=== PATIENT | female | born 1990 | race African-American/Black ===

== ENCOUNTER 2017-08-09 01:12 | Emergency (ER) | payer SELFPAY ==
[2017-08-09] MEDS ORDERED: Ketorolac INJ* 30 MG/ML 1 ML VIAL IV PUSH ONE (01:40)
[2017-08-09 01:44] LABS: ABS Basophils 0 10^3/ul (0-0.2); ABS Eosinophils 0.2 10^3/ul (0-0.6); ABS Lymphocytes 2.6 10^3/ul (1.0-4.8); ABS Neutrophils 5.3 10^3/ul (1.5-7.7); ABS Nucleated RBC 0 10^3/ul; Eosinophil % 2.3 % (0-6); Hematocrit 35 % (35-47); Hemoglobin 11.6 g/dl (12.0-16.0); Lymphocyte % 28.5 % (25-47); Mean Corpuscular HGB Conc 33 g/dl (31-36); Mean Corpuscular Hemoglobin 26 pg (27-31); Mean Corpuscular Volume 79 fL (80-97); Mean Platelet Volume 6.7 um3 (7.4-10.4); Nucleated Red Blood Cells % 0; Platelet Count 252 10^3/ul (150-450); Red Blood Count 4.43 10^6/ul (4.0-5.4); Red Cell Distribution Width 15 % (10.5-15); White Blood Count 9.1 10^3/ul (3.5-10.8)
[2017-08-09 02:01] LABS: EGFR Non-African American 113.4 (>60)
[2017-08-09 02:02] LABS: Urine Appearance Cloudy; Urine Blood 3+ (Negative); Urine Color Yellow; Urine Ketones Negative (Negative); Urine Protein 1+(30 mg/dL) (Negative); Urine Specific Gravity 1.023 (1.010-1.030); Urine Urobilinogen Negative (Negative)
[2017-08-09] MEDS ORDERED: cefTRIAXone(*) 1 GM in NS 0.9% 50 ML* 50 ML IVPB ONE (02:29)
[2017-08-09 04:11] VITALS: BP 120/68
--- NOTE | 2017-08-09 05:01 | ED ---
Nakita Babcock Nilda, scribed for Nabil Fiore MD on 08/09/17 at 0143 . GI/ HPI - HPI Summary HPI Summary: This patient is a 27 year old F [facility] accompanied by partner with a chief complaint of constant dysuria with a few drops of blood in urine today. The patient rates the pain 4/10 in severity. Symptoms aggravated by urination and alleviated by nothing. Patient reports left suprapubic pain and lower back pain. Patient denies vaginal pain, vaginal discharge, and N/V. 2 days ago, pt states her partner and her had intercourse and used a toy that was large and found blood on the toy afterwards. Pt states no chance of because she has not had sex with male recently. Pt states no recent daily medications. PSHx gastric bypass so pt states she cannot have NSAID PO. Allergies to Tylenol. - History of Current Complaint Chief Complaint: EDFlankPain Time Seen by Provider: 08/09/17 01:30 Stated Complaint: BLOOD IN URINE/ABD PAIN Hx Obtained From: Patient Onset/Duration: Started Hours Ago Timing: Constant, Lasting Hours Current Severity: Moderate Pain Intensity: 4 Location of Pain: Other - left lower abd pain Associated Signs and Symptoms: Positive: Other: - dysuria, hematuria, left suprapubic pain and lower back pain. Patient denies vaginal pain, vaginal discharge, and N/V Aggravating Factor(s): Urination Alleviating Factor(s): Nothing - Allergy/Home Medications Allergies/Adverse Reactions: Allergies Allergy/AdvReac Type Severity Reaction Status Date / Time acetaminophen Allergy Shortness Verified 08/09/17 01:27 of Breath NSAIDS (Non-Steroidal Allergy Unknown Verified 08/09/17 01:27 Anti-Inflamma Reaction Details PMH/Surg Hx/FS Hx/Imm Hx EENT History: Denies: Hx Deafness Neurological History: Reports: Other Neuro Impairments/Disorders - trigeminal neuralgia - Surgical History Surgery Procedure, Year, and Place: Gastric bypass. Infectious Disease History: No Infectious Disease History: Denies: Traveled Outside the [place] in Last 30 Days - Family History Known Family History: Positive: Other - breast CA - Social History Substance Use Type: Reports: None Review of Systems Positive: Abdominal Pain - left suprapubic pain. Negative: Vomiting, Nausea Positive: dysuria, hematuria. Negative: discharge Positive: Other - lower back pain All Other Systems Reviewed And Are Negative: Yes Physical Exam - Summary Physical Exam Summary: Appearance: Well appearing, no pain distress Skin: warm, dry, reflects adequate perfusion Head/face: normal Eyes: EOMI, [place] ENT: normal Neck: supple, non-tender Respiratory: CTA, breath sounds present Cardiovascular: RRR, pulses symmetrical Abdomen: non-tender, soft, no CVA tenderness Bowel Sounds: present Musculoskeletal: normal, strength/ROM intact Neuro: normal, sensory motor intact, A&Ox3 Triage Information Reviewed: Yes Vital Signs On Initial Exam: Initial Vitals Temp Pulse Resp BP Pulse Ox 97.3 F 68 16 111/64 100 08/09/17 01:24 08/09/17 01:24 08/09/17 01:24 08/09/17 01:24 08/09/17 01:24 Vital Signs Reviewed: Yes Diagnostics - Vital Signs Vital Signs Temp Pulse Resp BP Pulse Ox 08/09/17 01:24 97.3 F 68 16 111/64 100 - Laboratory Lab Results: Lab Results 08/09/17 08/09/17 08/09/17 Range/Units 01:37 01:37 01:37 WBC 9.1 (3.5-10.8) 10^3/ul RBC 4.43 (4.0-5.4) 10^6/ul Hgb 11.6 L (12.0-16.0) g/dl Hct 35 (35-47) % MCV 79 L (80-97) fL MCH 26 L (27-31) pg MCHC 33 (31-36) g/dl RDW 15 (10.5-15) % Plt Count 252 (150-450) 10^3/ul MPV 6.7 L (7.4-10.4) um3 Neut % (Auto) 58.0 (38-83) % Lymph % (Auto) 28.5 (25-47) % [place] % (Auto) 10.7 H (0-7) % Eos % (Auto) 2.3 (0-6) % Baso % (Auto) 0.5 (0-2) % Absolute Neuts (auto) 5.3 (1.5-7.7) 10^3/ul Absolute Lymphs (auto) 2.6 (1.0-4.8) 10^3/ul Absolute Monos (auto) 1.0 H (0-0.8) 10^3/ul Absolute Eos (auto) 0.2 (0-0.6) 10^3/ul Absolute Basos (auto) 0 (0-0.2) 10^3/ul Absolute Nucleated RBC 0 10^3/ul Nucleated RBC % 0 Sodium 140 (139-145) mmol/L Potassium 4.4 (3.5-5.0) mmol/L Chloride 108 (101-111) mmol/L Carbon Dioxide 28 (22-32) mmol/L Anion Gap 4 (2-11) mmol/L BUN 14 (6-24) mg/dL Creatinine 0.63 (0.51-0.95) mg/dL Est GFR ( Amer) 145.8 (>60) Est GFR (Non-Af Amer) 113.4 (>60) BUN/Creatinine Ratio 22.2 H (8-20) Glucose 88 (70-100) mg/dL Lactic Acid 0.8 (0.5-2.0) mmol/L Calcium 8.6 (8.6-10.3) mg/dL Total Bilirubin 0.20 (0.2-1.0) mg/dL AST 22 (13-39) U/L ALT 28 (7-52) U/L Alkaline Phosphatase 77 (34-104) U/L C-Reactive Protein 5.57 H (< 5.00) mg/L Total Protein 6.1 L (6.4-8.9) g/dL Albumin 3.5 (3.2-5.2) g/dL Globulin 2.6 (2-4) g/dL Albumin/Globulin Ratio 1.3 (1-3) Lipase 25 (11.0-82.0) U/L Beta HCG, Quant < 0.60 mIU/mL Urine Color Urine Appearance Urine pH (5-9) Ur Specific [place] (1.010-1.030) Urine Protein (Negative) Urine Ketones (Negative) Urine Blood (Negative) Urine Nitrate (Negative) Urine Bilirubin (Negative) Urine Urobilinogen (Negative) Ur Leukocyte Esterase (Negative) Urine WBC (Auto) (Absent) Urine RBC (Auto) (Absent) Ur Squamous Epith Cells (Absent) Urine Bacteria (Absent) Urine Glucose (Negative) 08/09/17 Range/Units 01:46 WBC (3.5-10.8) 10^3/ul RBC (4.0-5.4) 10^6/ul Hgb (12.0-16.0) g/dl Hct (35-47) % MCV (80-97) fL MCH (27-31) pg MCHC (31-36) g/dl RDW (10.5-15) % Plt Count (150-450) 10^3/ul MPV (7.4-10.4) um3 Neut % (Auto) (38-83) % Lymph % (Auto) (25-47) % [place] % (Auto) (0-7) % Eos % (Auto) (0-6) % Baso % (Auto) (0-2) % Absolute Neuts (auto) (1.5-7.7) 10^3/ul Absolute Lymphs (auto) (1.0-4.8) 10^3/ul Absolute Monos (auto) (0-0.8) 10^3/ul Absolute Eos (auto) (0-0.6) 10^3/ul Absolute Basos (auto) (0-0.2) 10^3/ul Absolute Nucleated RBC 10^3/ul Nucleated RBC % Sodium (139-145) mmol/L Potassium (3.5-5.0) mmol/L Chloride (101-111) mmol/L Carbon Dioxide (22-32) mmol/L Anion Gap (2-11) mmol/L BUN (6-24) mg/dL Creatinine (0.51-0.95) mg/dL Est GFR ( Amer) (>60) Est GFR (Non-Af Amer) (>60) BUN/Creatinine Ratio (8-20) Glucose (70-100) mg/dL Lactic Acid (0.5-2.0) mmol/L Calcium (8.6-10.3) mg/dL Total Bilirubin (0.2-1.0) mg/dL AST (13-39) U/L ALT (7-52) U/L Alkaline Phosphatase (34-104) U/L C-Reactive Protein (< 5.00) mg/L Total Protein (6.4-8.9) g/dL Albumin (3.2-5.2) g/dL Globulin (2-4) g/dL Albumin/Globulin Ratio (1-3) Lipase (11.0-82.0) U/L Beta HCG, Quant mIU/mL Urine Color Yellow Urine Appearance Cloudy Urine pH 6.0 (5-9) Ur Specific [place] 1.023 (1.010-1.030) Urine Protein 1+(30 mg/dl) A (Negative) Urine Ketones Negative (Negative) Urine Blood 3+ A (Negative) Urine Nitrate Positive A (Negative) Urine Bilirubin Negative (Negative) Urine Urobilinogen Negative (Negative) Ur Leukocyte Esterase 3+ A (Negative) Urine WBC (Auto) 3+(>20/hpf) A (Absent) Urine RBC (Auto) 3+(>10/hpf) A (Absent) Ur Squamous Epith Cells Present A (Absent) Urine Bacteria Absent (Absent) Urine Glucose Negative (Negative) Result Diagrams: 08/09/17 01:37 08/09/17 01:37 Lab Statement: Any lab studies that have been ordered have been reviewed, and results considered in the medical decision making process. - CT Abd/Pel CT Interpretation Completed By: Radiologist - CT Abd/Pel: No nephrolithiasis, ureterolithiasis or obstructive uropathy. No bladder calculi. Unremarkable pancreas and gallbladder. No bowel obstruction, colitis, free fluid or free air. Appendix not seen. Gastric bypass. Unremarkable uterus and ovaries. Dr. Fiore has reviewed this report. Re-Evaluation - Re-Evaluation First Eval Re-Evaluation Time: 02:44 Change: Improved Comment: Pt feels better. She's agreeable to D/C. GIGU Course/Dx - Course Course Of Treatment: Patient with urinary symptoms without fever or vomiting. She does have flank pain, left lower quadrant pain and hematuria. CT scan was performed to rule out stone. No stone was seen. No adnexal pathology was noted. IV Rocephin was given here and the patient was discharged on oral antibiotics. She will follow up closely with her primary care physician. - Diagnoses Differential Diagnoses - Female: Ovarian Cyst, , Pelvic Inflammatory Disease, Renal Calculi, Renal Colic, Tubo-Ovarian Abscess, Urinary Tract Infection Provider Diagnoses: Acute cystitis Discharge - Sign-Out/Discharge Documenting (check all that apply): Discharge/Admit/Transfer - Discharge Plan Condition: Good Disposition: HOME Prescriptions: Cephalexin CAP* [Keflex CAP*] 500 mg PO TID #15 cap Phenazopyridine 200 mg (NF) [Pyridium 200 MG tab *] 200 mg PO TID #9 tab Patient Education Materials: Urinary Tract Infection in Women (ED) Forms: *Work Release Referrals: [facility] [Outside] No Primary Care Phys,NOPCP [Primary Care Provider] - Additional Instructions: Drink plenty of fluids. Cranberry may help. Return with fever, vomiting, increased pain, worse or other concerns. - Billing Disposition and Condition Condition: GOOD Disposition: HOME The documentation as recorded by the Nakita marino Nilda accurately reflects the service I personally performed and the decisions made by , Nabil Fiore MD.
--- NOTE | 2017-08-09 08:11 | RAD ---
CLINICAL HISTORY: Left flank pain COMPARISON: None TECHNIQUE: Multiple contiguous axial CT scans were obtained of the abdomen and pelvis, without intravenous contrast enhancement. Coronal and sagittal multiplanar reformations are submitted for review. Oral contrast was not administered. FINDINGS: The study is limited by the lack of intravenous contrast. This limits evaluation of the solid organs and vasculature. LUNG BASES: The lung bases are clear. LIVER: The liver is normal in shape, size, contour, and attenuation. BILE DUCTS: There is no intrahepatic or extrahepatic biliary dilatation. GALLBLADDER: The gallbladder is normal, without pericholecystic inflammatory change. PANCREAS: The pancreas is normal, without mass or ductal dilatation. SPLEEN: Normal in size and appearance. UPPER GI TRACT: Evaluation of the gastrointestinal tract is limited by incomplete gastric distention. There is postsurgical change to the upper GI tract. SMALL BOWEL AND MESENTERY: There is postsurgical change to the small bowel. There is no obstruction. COLON: The colon is normal in contour, course, caliber. There is no pericolonic inflammatory change. The appendix is not clearly visualized. There is no inflammatory change within the right lower quadrant. ADRENALS: Normal bilaterally. KIDNEYS: The kidneys are normal in shape, size, contour, and axis. There is no hydronephrosis or nephrolithiasis. BLADDER: The bladder is incompletely distended but is grossly normal. PELVIC ORGANS: The uterus and adnexa are grossly normal for technique. AORTA: The aorta is normal. IVC: Unremarkable LYMPH NODES: There is no lymphadenopathy by size criteria. ABDOMINAL WALL: There is no evidence for abdominal wall hernia. BONES AND SOFT TISSUES: The bones and soft tissues are unremarkable. OTHER: None IMPRESSION: NO HYDRONEPHROSIS OR NEPHROLITHIASIS.
--- NOTE | 2017-08-11 06:48 | PN ---
Progress Note - Progress Note Date of Service: 08/09/17 Note: Urine culture preliminary grew Escherichia coli Patient was placed on Keflex prior to discharge We'll await sensitivities Nothing further at this time
--- NOTE | 2017-08-12 06:59 | PN ---
Progress Note - Progress Note Date of Service: 08/09/17 Note: Urine grew Escherichia coli Urine shows sensitivities to Keflex Patient placed on Keflex prior to discharge Nothing further at this time
== END 2017-08-09 03:45 | disposition home or self-care (01) ==
LOC: ED 01:12
DX: N30.00 Acute cystitis without hematuria (principal); B96.20 Unspecified Escherichia coli [E. coli] as the cause of diseases classified elsewhere; Z98.84 Bariatric surgery status; Z88.6 Allergy status to analgesic agent
CPT/HCPCS: 36415; 74176; 80053; 81003; 81015; 83605; 83690; 84702; 85025; 86140; 87077; 87086; 87186; 96374; 96375; 99284; J0696; J1885

== ENCOUNTER 2017-09-07 13:38 | Emergency (ER) | payer SELFPAY ==
[2017-09-07 14:39] LABS: Urine Appearance Cloudy; Urine Blood 2+ (Negative); Urine Color Amber; Urine Ketones Negative (Negative); Urine Protein Negative (Negative); Urine Specific Gravity 1.016 (1.010-1.030); Urine Urobilinogen Negative (Negative)
--- NOTE | 2017-09-07 15:02 | ED ---
Russ Babcock Stephanie, scribed for Nabil Fiore MD on 09/07/17 at 1450 . GI/ HPI - HPI Summary HPI Summary: The pt is a 27 y/o F presenting to the ED with c/o burning with urination that began 09/05/17. Symptoms include slight back discomfort. - History of Current Complaint Chief Complaint: EDUrogenitalProblems Time Seen by Provider: 09/07/17 14:42 Stated Complaint: POSS UTI Hx Obtained From: Patient Onset/Duration: Started Days Ago - 2, Still Present Timing: Constant Current Severity: Mild Pain Intensity: 4 Pain Characteristics: Burning Associated Signs and Symptoms: Positive: Dysuria, Other: - slight back discomfort Aggravating Factor(s): Urination Alleviating Factor(s): Nothing - Allergy/Home Medications Allergies/Adverse Reactions: Allergies Allergy/AdvReac Type Severity Reaction Status Date / Time acetaminophen Allergy Shortness Verified 09/07/17 13:46 of Breath NSAIDS (Non-Steroidal AdvReac See Comment Verified 09/07/17 13:46 Anti-Inflamma PMH/Surg Hx/FS Hx/Imm Hx Sensory History: Denies: Hx Legally Blind, Hx Deafness EENT History: Denies: Hx Deafness Neurological History: Reports: Other Neuro Impairments/Disorders - trigeminal neuralgia - Surgical History Surgery Procedure, Year, and Place: Gastric bypass. Infectious Disease History: No Infectious Disease History: Denies: Traveled Outside the [place] in Last 30 Days - Family History Known Family History: Positive: Other - breast CA Negative: Renal Disease - Social History Occupation: Employed Part-time Lives: With Family Alcohol Use: None Hx Substance Use: No Substance Use Type: Reports: None Hx Tobacco Use: No Smoking Status (MU): Never Smoked Tobacco Have You Smoked in the Last Year: No Review of Systems Negative: Fever Positive: burning, other - slight back discomfort Negative: Slurred Speech All Other Systems Reviewed And Are Negative: Yes Physical Exam - Summary Physical Exam Summary: Appearance: Well appearing, no pain distress Skin: warm, dry, reflects adequate perfusion Head/face: normal Eyes: EOMI, [place] ENT: normal Neck: supple, non-tender Respiratory: CTA, breath sounds present Cardiovascular: RRR, pulses symmetrical Abdomen: non-tender, soft Bowel Sounds: present Musculoskeletal: normal, strength/ROM intact Neuro: normal, sensory motor intact, A&Ox3 Triage Information Reviewed: Yes Vital Signs On Initial Exam: Initial Vitals Temp Pulse Resp BP Pulse Ox 98.2 F 70 14 108/60 100 09/07/17 13:42 09/07/17 13:42 09/07/17 13:42 09/07/17 13:42 09/07/17 13:42 Vital Signs Reviewed: Yes Diagnostics - Vital Signs Vital Signs Temp Pulse Resp BP Pulse Ox 09/07/17 13:42 98.2 F 70 14 108/60 100 - Laboratory Lab Results: Lab Results 09/07/17 Range/Units 14:09 Urine Color [place] Urine Appearance Cloudy Urine pH 5.0 (5-9) Ur Specific [place] 1.016 (1.010-1.030) Urine Protein Negative (Negative) Urine Ketones Negative (Negative) Urine Blood 2+ A (Negative) Urine Nitrate Positive A (Negative) Urine Bilirubin Negative (Negative) Urine Urobilinogen Negative (Negative) Ur Leukocyte Esterase 3+ A (Negative) Urine WBC (Auto) 3+(>20/hpf) A (Absent) Urine RBC (Auto) 3+(>10/hpf) A (Absent) Ur Squamous Epith Cells Present A (Absent) Ur Transition Epith Cell Present A (Absent) Urine Bacteria 1+ A (Absent) Urine Glucose Negative (Negative) Urine Ascorbic Acid * A (Negative) Lab Statement: Any lab studies that have been ordered have been reviewed, and results considered in the medical decision making process. GIGU Course/Dx - Course Course Of Treatment: Supple, uncomplicated urinary tract infection and woman. Treat with Macrobid and Pyridium. - Diagnoses Differential Diagnoses - Female: Other - UTI, cystitis, pyelonephritis Provider Diagnoses: Urinary tract infection Discharge - Sign-Out/Discharge Documenting (check all that apply): Discharge/Admit/Transfer - Discharge - Discharge Plan Condition: Stable Disposition: HOME Prescriptions: Nitrofurantoin Monohyd/M-Cryst [Macrobid 100 mg Capsule] 100 mg PO BID #14 cap Patient Education Materials: Urinary Tract Infection in Women (ED) Referrals: [facility] [Outside] [facility] [Outside] Additional Instructions: Drink lots of fluids. Cranberry juice may help. Return with fever, back pain, vomiting, worse or other concerns. - Billing Disposition and Condition Condition: STABLE Disposition: Home The documentation as recorded by the Russ marino Stephanie accurately reflects the service I personally performed and the decisions made by me, Nabil Fiore MD.
[2017-09-07 15:17] VITALS: BP 110/70
--- NOTE | 2017-09-09 18:11 | PN ---
Progress Note - Progress Note Date of Service: 09/09/17 Note: Patient's urine culture grew Klebsiella pneumonia 25-50,000. Patient placed on Macrobid. Will wait for final culture sensitivity.
== END 2017-09-07 15:15 | disposition home or self-care (01) ==
LOC: ED 13:38
DX: N39.0 Urinary tract infection, site not specified (principal); Z88.6 Allergy status to analgesic agent; Z98.84 Bariatric surgery status
CPT/HCPCS: 81003; 81015; 87077; 87086; 87186; 99282

== ENCOUNTER → 2018-08-20 19:00 | Emergency (ER) | payer BC ==
[2018-08-20 20:49] LABS: ABS Eosinophils 0.1 10^3/ul (0-0.6); ABS Lymphocytes 1.7 10^3/ul (1.0-4.8); ABS Monocytes 0.9 10^3/ul (0-0.8); ABS Neutrophils 8.9 10^3/ul (1.5-7.7); Eosinophil % 0.8 %; Hematocrit 35 % (35-47); Hemoglobin 11.4 g/dL (12.0-16.0); Lymphocyte % 14.7 %; Mean Corpuscular HGB Conc 33 g/dL (31-36); Mean Corpuscular Hemoglobin 27 pg (27-31); Mean Corpuscular Volume 82 fL (80-97); Nucleated Red Blood Cells % 0.1; Platelet Count 290 10^3/uL (150-450); Red Blood Count 4.24 10^6 /uL (3.70-4.87); Red Cell Distribution Width 14 % (10.5-15); White Blood Count 11.6 10^3/uL (3.5-10.8)
[2018-08-20 20:58] LABS: Albumin 3.5 g/dL (3.2-5.2); Calcium 9.3 mg/dL (8.6-10.3); Potassium 3.7 mmol/L (3.5-5.0); Total Bilirubin 0.3 mg/dL (0.2-1.0)
[2018-08-20 21:05] LABS: Albumin/Globulin Ratio 1.1 (1-3); EGFR African American 177.8 (>60); EGFR Non-African American 146.9 (>60); Globulin 3.1 g/dL (2-4); Total Protein 6.6 g/dL (6.4-8.9)
--- NOTE | 2018-08-20 21:55 | ED ---
Abdominal Pain/Female - HPI Summary HPI Summary: This patient is a 28 year old female presenting to [facility] with a chief complaint of abdominal pain. The patient is 24 weeks and she reports nausea and diarrhea since yesterday. She states the diarrhea has been watery. She notices RUQ discomfort today. She describes the pain as a pressure pain. She rates her pain 4/10 in severity. The patient has not had much to eat or drink because she states it triggers her diarrhea. - History of Current Complaint Chief Complaint: EDNauseaVomitDiarrh Stated Complaint: DIARRHEA, 24 WEEKS , ABD PAIN PER PT Time Seen by Provider: 08/20/18 21:49 Hx Obtained From: Patient ?: Yes Onset/Duration: Sudden Onset, Lasting Days Pain Intensity: 4 Pain Scale Used: 0-10 Numeric Location: Discrete At: RUQ Radiates: No Allergies/Adverse Reactions: Allergies Allergy/AdvReac Type Severity Reaction Status Date / Time NSAIDS (Non-Steroidal AdvReac See Comment Verified 09/07/17 13:46 Anti-Inflamma PMH/Surg Hx/FS Hx/Imm Hx Sensory History: Denies: Hx Legally Blind, Hx Deafness Opthamlomology History: Denies: Hx Legally Blind Neurological History: Reports: Other Neuro Impairments/Disorders - trigeminal neuralgia - Surgical History Surgery Procedure, Year, and Place: Gastric bypass. Infectious Disease History: No Infectious Disease History: Denies: Traveled Outside the [place] in Last 30 Days - Family History Known Family History: Positive: Other - breast CA Negative: Renal Disease - Social History Alcohol Use: None Hx Substance Use: No Substance Use Type: Reports: None Hx Tobacco Use: No Smoking Status (MU): Never Smoked Tobacco Have You Smoked in the Last Year: No Review of Systems Negative: Fever Positive: Abdominal Pain, Diarrhea, Nausea. Negative: Vomiting All Other Systems Reviewed And Are Negative: Yes Physical Exam - Summary Physical Exam Summary: Appearance: Well-appearing, Well-nourished, lying in bed comfortably. Appears well hydrated. Skin: Warm, dry, no obvious rash Eyes: sclera anicteric, no conjunctival pallor ENT: mucous membranes moist, pharynx appears normal Neck: Supple, nontender Respiratory: Clear to auscultation, no signs of respiratory distress Cardiovascular: Normal S1, S2. No murmurs. Normal distal pulses in tibial and radial bilaterally. Abdomen: Soft, nontender, normal active bowel sounds present. Gravid abdomen. Uterine Fundal height is 5 cm above the symphysis pubis, within normal limits for this length of . Musculoskeletal: Normal, Strength/ROM Intact Neurological: A&Ox3, awake and alert, mentation is normal, speech is fluent and appropriate Psychiatric: affect is normal, does not appear anxious or depressed Triage Information Reviewed: Yes Vital Signs On Initial Exam: Initial Vitals Temp Pulse Resp BP Pulse Ox 97.8 F 95 18 131/85 100 08/20/18 19:05 08/20/18 19:05 08/20/18 19:05 08/20/18 19:05 08/20/18 19:05 Vital Signs Reviewed: Yes Diagnostics - Vital Signs Vital Signs Temp Pulse Resp BP Pulse Ox 08/20/18 21:30 98.5 F 85 18 125/63 100 08/20/18 19:05 97.8 F 95 18 131/85 100 - Laboratory Lab Results: Lab Results 08/20/18 08/20/18 Range/Units 20:39 20:39 WBC 11.6 H (3.5-10.8) 10^3/uL RBC 4.24 (3.70-4.87) 10^6 /uL Hgb 11.4 L (12.0-16.0) g/dL Hct 35 (35-47) % MCV 82 (80-97) fL MCH 27 (27-31) pg MCHC 33 (31-36) g/dL RDW 14 (10.5-15) % Plt Count 290 (150-450) 10^3/uL MPV 7.0 L (7.4-10.4) fL Neut % (Auto) 76.7 % Lymph % (Auto) 14.7 % [place] % (Auto) 7.6 % Eos % (Auto) 0.8 % Baso % (Auto) 0.2 % Absolute Neuts (auto) 8.9 H (1.5-7.7) 10^3/ul Absolute Lymphs (auto) 1.7 (1.0-4.8) 10^3/ul Absolute Monos (auto) 0.9 H (0-0.8) 10^3/ul Absolute Eos (auto) 0.1 (0-0.6) 10^3/ul Absolute Basos (auto) 0.0 (0-0.2) 10^3/ul Absolute Nucleated RBC 0.0 10^3/ul Nucleated RBC % 0.1 Sodium 135 (135-145) mmol/L Potassium 3.7 (3.5-5.0) mmol/L Chloride 109 (101-111) mmol/L Carbon Dioxide 18 L (22-32) mmol/L Anion Gap 8 (2-11) mmol/L BUN 8 (6-24) mg/dL Creatinine 0.50 L (0.51-0.95) mg/dL Est GFR ( Amer) 177.8 (>60) Est GFR (Non-Af Amer) 146.9 (>60) BUN/Creatinine Ratio 16.0 (8-20) Glucose 74 (70-100) mg/dL Calcium 9.3 (8.6-10.3) mg/dL Total Bilirubin 0.30 (0.2-1.0) mg/dL AST 14 (13-39) U/L ALT 13 (7-52) U/L Alkaline Phosphatase 60 (34-104) U/L Total Protein 6.6 (6.4-8.9) g/dL Albumin 3.5 (3.2-5.2) g/dL Globulin 3.1 (2-4) g/dL Albumin/Globulin Ratio 1.1 (1-3) Lipase 10 L (11.0-82.0) U/L Result Diagrams: 08/20/18 20:39 08/20/18 20:39 Lab Statement: Any lab studies that have been ordered have been reviewed, and results considered in the medical decision making process. Abdominal Pain Fem Course/Dx - Course Course Of Treatment: This patient is a 28 year old female presenting to [facility] with a chief complaint of abdominal pain. The patient is 24 weeks and she reports nausea and diarrhea since yesterday. Labs and physical exam are unremarkable. Patient was advised to stay hydrated. A plan for discharge was discussed with the patient and she was agreeable with this plan. - Diagnoses Provider Diagnoses: Acute diarrhea Discharge - Sign-Out/Discharge Documenting (check all that apply): Patient Departure - Discharge Patient Received Moderate/Deep Sedation with Procedure: No - Discharge Plan Condition: Good Disposition: HOME Prescriptions: Ondansetron ODT TAB* [Zofran 4 MG Odt TAB*] 8 mg PO Q6H PRN #12 tab.odt PRN Reason: Nausea Patient Education Materials: Acute Diarrhea (ED) Referrals: No Primary Care Phys,NOPCP [Primary Care Provider] - [facility] [Outside] Additional Instructions: Check in with your OB if this problem persists more than a few days. Staying hydrated is important during a diarrheal illness, especially when you are . Dehydration is relatively unusual unless you begin to have trouble with vomiting. - Billing Disposition and Condition Condition: GOOD Disposition: Home - Attestation Statements Document Initiated by Carlin: Yes Documenting Scribe: Jhoan Rhodes Provider For Whom Carlin is Documenting (Include Credential): Jonnathan Schilling MD Scribe Attestation: IJhoan scribed for Jonnathan Schilling MD on 08/21/18 at 0502. Scribe Documentation Reviewed: Yes Provider Attestation: The documentation as recorded by the Jhoan marino accurately reflects the service I personally performed and the decisions made by me, Jonnathan Schilling MD Status of Scribe Document: Viewed
[2018-08-20 22:17] VITALS: BP 116/70
== END | disposition home or self-care (01) ==
LOC: ED 19:00
DX: R19.7 Diarrhea, unspecified (principal); R10.9 Unspecified abdominal pain; R11.0 Nausea; Z34.92 Encounter for supervision of normal pregnancy, unspecified, second trimester; Z3A.24 24 weeks gestation of pregnancy; Z98.84 Bariatric surgery status
CPT/HCPCS: 36415; 80053; 83690; 85025; 99282

== ENCOUNTER 2018-08-23 11:56 | Emergency (ER) | payer BC ==
[2018-08-23] MEDS ORDERED: NS 0.9% 1000 ML** 1,000 ML IV ONE (12:04)
--- NOTE | 2018-08-23 12:25 | UC ---
Abdominal Pain Female HPI - HPI Summary HPI Summary: This patient is a 28-year-old female who presents to the urgent care after she was seen by her DEVELOPMENT DIRECTOR doctor complaining of diarrhea. She reports that shes been having watery diarrhea for the last 3 days. She reports no history of recent traveling or antibiotic use. She reports that her mother had diarrhea couple days ago but only for one day. She denies any fever, denies any nausea vomiting, denies any abdominal pain or cramping. The patient reports that she is 24 weeks , she is , she denies any vaginal discharge, or bleeding or pelvic cramping. She has no other complaints. She reports that her DEVELOPMENT DIRECTOR doctor send her to the urgent care for IV hydration. - History of Current Complaint Chief Complaint: UCGI Stated Complaint: DIARRHEA Time Seen by Provider: 08/23/18 12:04 Hx Obtained From: Patient ?: Yes Onset/Duration: Gradual Onset Timing: Constant Severity Initially: Mild Severity Currently: Mild Pain Intensity: 3 Allergies/Adverse Reactions: Allergies Allergy/AdvReac Type Severity Reaction Status Date / Time NSAIDS (Non-Steroidal AdvReac See Comment Verified 08/23/18 12:09 Anti-Inflamma Home Medications: Home Medications Calcium Carbonate [Tums] 500 mg PO ONCE PRN 08/23/18 [History Confirmed 08/23/18 ] Loperamide CAP* [Imodium CAP*] 3 tab PO ONCE PRN 08/23/18 [History Confirmed ] Pnv No.103/Folic/Om3s/Fish Oil [ Gummies] 1 tab PO DAILY 08/23/18 [ History Confirmed 08/23/18] PMH/Surg Hx/FS Hx/Imm Hx Previously Healthy: Yes - Surgical History Surgical History: Yes Surgery Procedure, Year, and Place: Gastric bypass. - Family History Known Family History: Positive: Other - breast CA Negative: Renal Disease - Social History Alcohol Use: None Substance Use Type: None Smoking Status (MU): Never Smoked Tobacco Have You Smoked in the Last Year: No Review of Systems All Other Systems Reviewed And Are Negative: Yes Constitutional: Positive: Negative Skin: Positive: Negative Eyes: Positive: Negative ENT: Positive: Negative Respiratory: Positive: Negative Cardiovascular: Positive: Negative Gastrointestinal: Positive: Diarrhea Genitourinary: Positive: Negative Motor: Positive: Negative Neurovascular: Positive: Negative Musculoskeletal: Positive: Negative Neurological: Positive: Negative Psychological: Positive: Negative Is Patient Immunocompromised?: No Physical Exam - Summary Physical Exam Summary: VITAL SIGNS: Reviewed. GENERAL: Patient is an obese female who is lying comfortable in the examining table. Patient is not in any acute respiratory distress. HEAD AND FACE: Normocephalic and atraumatic. EYES: PERRLA, EOMI x 2, No injected conjunctiva. EARS: Hearing grossly intact. Ear canals and tympanic membranes are WNL. MOUTH: Oropharynx within normal limits. NECK: Supple, trachea is midline, no adenopathy, no JVD. CHEST: Symmetric, no tenderness at palpation LUNGS: Clear to auscultation bilaterally. No wheezing or crackles. CVS: RRR, S1 and S2 present, no murmurs or gallops appreciated. ABDOMEN: Soft, obese non-tender. Positive bowel sounds. No rebound no guarding , and no masses palpated. No abdominal bruit or pulsations. EXTREMITIES: FROM in all major joints, no edema, no cyanosis or clubbing. NEURO: Alert and oriented x 3. No acute neurological deficits. Speech is normal. SKIN: Dry and warm Triage Information Reviewed: Yes Appearance: Well-Appearing, No Pain Distress, Well-Nourished Vital Signs: Initial Vital Signs Temp 98.9 F 08/23/18 12:03 Pulse 80 08/23/18 12:03 Resp 18 08/23/18 12:03 BP 108/65 08/23/18 12:03 Pulse Ox 100 08/23/18 12:03 Abd Pain Female Course/Dx - Course Course Of Treatment: The urgent care course the patient was given IV fluids 1 L and she reports that she is feeling better. She has not had any episodes of diarrhea at this point. She denies any abdominal pain and abdominal cramping, denies any pelvic pain, denies any pelvic cramping or vaginal bleeding or discharge. - Differential Dx/Diagnosis Provider Diagnosis: Diarrhea Discharge - Sign-Out/Discharge Documenting (check all that apply): Patient Departure All imaging exams completed and their final reports reviewed: No Studies - Discharge Plan Condition: Stable Disposition: HOME Patient Education Materials: Acute Diarrhea (ED) Forms: *Work Release Referrals: No Primary Care Phys,NOPCP [Primary Care Provider] - [facility] [Outside] Additional Instructions: Increase your fluid intake F/U with PCP and OBGYN in the next 2-3 days Return to the UC if symptoms worsen - Billing Disposition and Condition Condition: STABLE Disposition: Home
[2018-08-23 13:32] VITALS: BP 106/61
== END 2018-08-23 13:35 | disposition home or self-care (01) ==
LOC: UCEAST 11:56
DX: O26.892 Other specified pregnancy related conditions, second trimester (principal); R19.7 Diarrhea, unspecified; Z3A.24 24 weeks gestation of pregnancy; Z98.84 Bariatric surgery status
CPT/HCPCS: 96360; 99211; G0463

== ENCOUNTER 2018-09-11 14:47 | Emergency (ER) | payer SELFPAY ==
--- OUTSIDE RECORDS SUMMARY | 2018-09-11 14:54 | XMS REPORT | Continuity of Care Document ---
:1990 External Reference #:[id number] Author Name Kaity Campa MD Address [address] [place] [address] Care Team Providers Name Role Phone Kaela Wilson CNM Care Team Information Stopper Maker Unavailable Payers Date Identification Numbers Payment Provider Subscriber Policy Number: [id number] Miroslava BC/BS [facility] Bridget Hyman PayID: [id number] [address] [address] [place] [address] Family History Date Family Member(s) Observation Comments Father due to [place] () Mother A&W Mother Breast Cancer BRCA negative First Brother A&W First Sister A&W Second Sister A&W Paternal Grandfather due to Unknown Causes () Paternal Grandmother due to Unknown Causes () Maternal Grandfather due to Unknown Causes () Maternal Grandmother due to Cancer () Social History Type Date Description Comments Sex Unknown Education Highest level completed, Associates Degree Marital Status Engaged Lives With Mother Lives With Fiance Lives With Sister Diet Keto Pets 2 dogs Pets Rabbit Pets Guinea Pig 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 Tobacco Use Start: Unknown Never Smoked Cigarettes ETOH Use Denies alcohol use Recreational Drug Use Does Not Use Drugs Exercise Type/Frequency Exercises rarely Seat Belt/Car Seat Always uses seat belt STD's Genital Warts Allergies, Adverse Reactions, Alerts Description No Known Drug Allergies Medications Active Medications SIG Qnty Indications Ordering Date Provider Blood Glucose use in the 1Monitor Gisele Campos, 05/22/2018 Monitoring System morning before CNM eating, then 2 W/Device Kit hours after every meal Lancets use 4 times a day 100units Gisele Campos, 05/22/2018 Yoanna Safety CNM Misc Blood Glucose Test for use with 100units Gisele Campos, 05/22/2018 blood glucose CNM Strips meter. use as directed four times a day. Alcohol Prep for use with 100units Gisele Campos, 05/22/2018 Pads testing blood CNM sugars Vitamin Unknown Folic Acid Unknown 800mcg Tablets Vitamin D3 Unknown 1000Unit Capsules Medications Administered in Office Medication SIG Qnty Indications Ordering Provider Date PT SCRN Tbco Id as Non User Kaity Campa MD 08/23/2018 Injection Vital Signs Date Vital Result Comment 05/10/2018 7:49am BP Systolic 110 mmHg BP Diastolic 68 mmHg Height 64.5 inches 5'4.50" Weight 250.00 lb BMI (Body Mass Index) 42.2 kg/m2 Last Menstrual Period 9245010 1 Parity 0 Results Test Date Facility Test Result H/L Range Note GC/Chlamydia 06/11/2018 [facility] Chlamydia Negative [place] [address] trachomatis Rna [phone] Neisseria gonorrhoeae (GC) Rna Negative Negative Urine Drug 06/11/2018 [facility] Urine Amphetamine Negative ng/ mL 1 Comp 20 Test [place], [place] [id number] [phone] Urine Barbiturates Negative ng/mL 2 Urine Benzodiazepines Negative ng/mL 3 Urine Cocaine Negative ng/mL 4 Urine Phencyclidine Negative ng/mL Cutoff: 25 Urine Tetrahydrocannabinol Negative ng/mL Cutoff: 50 5 Creatinine, Urine 138.6 mg/dL Specific [place] 1.015 pH 6.6 Oxidants Negative 6 Adulterants Comment Normal Codeine, Ur Not Detected ng/mL Cutoff: 25 7 Qiligfr-0-ihbb-glucuronide, Ur Not Detected ng/mL 8 Morphine, Ur Not Detected ng/mL Cutoff: 25 9 Szxxbnzb-5-wxej-glucuronide, U Not Detected ng/mL 10 6-monoacetylmorphine, Ur Not Detected ng/mL Cutoff: 25 11 Hydrocodone, Ur Not Detected ng/mL Cutoff: 25 12 Norhydrocodone, Ur Not Detected ng/mL Cutoff: 25 13 Dihydrocodeine, Ur Not Detected ng/mL Cutoff: 25 14 Hydromorphone, Ur Not Detected ng/mL Cutoff: 25 15 Igehxkxnrvanc3ozlobmucazqibcl Not Detected ng/mL 16 Oxycodone, Ur Not Detected ng/mL Cutoff: 25 17 Noroxycodone, Ur Not Detected ng/mL Cutoff: 25 18 Oxymorphone, Ur Not Detected ng/mL Cutoff: 25 19 Ynumapvqjxg-4-effj-glucuronide Not Detected ng/mL 20 Noroxymorphone, Ur Not Detected ng/mL Cutoff: 25 21 Fentanyl, Ur Not Detected ng/mL Cutoff: 2 22 Norfentanyl, Ur Not Detected ng/mL Cutoff: 2 23 Meperidine, Ur Not Detected ng/mL Cutoff: 25 24 Normeperidine, Ur Not Detected ng/mL Cutoff: 25 25 Naloxone, Ur Not Detected ng/mL Cutoff: 25 26 Zjooqrai-4-lkqx-glucuronide, U Not Detected ng/mL 27 Methadone, Ur Not Detected ng/mL Cutoff: 25 28 Eddp, Ur Not Detected ng/mL Cutoff: 25 29 Propoxyphene, Ur Not Detected ng/mL Cutoff: 25 30 Norpropoxyphene, Ur Not Detected ng/mL Cutoff: 25 31 Tramadol, Ur Not Detected ng/mL Cutoff: 25 32 O-desmethyltramadol, Ur Not Detected ng/mL Cutoff: 25 33 Tapentadol, Ur Not Detected ng/mL Cutoff: 25 34 N-desmethyltapentadol, Ur Not Detected ng/mL Cutoff: 50 35 Jgwcotovzn-dpok-mrsnizfkfya, U Not Detected ng/mL 36 Buprenorphine, Ur Not Detected ng/mL Cutoff: 5 37 Norbuprenorphine, Ur Not Detected ng/mL Cutoff: 5 38 Norbuprenorphine glucuronide Not Detected ng/mL Cutoff: 20 39 Opioid Interpretation See Comment 40 PNL No 05/15/2018 [facility] Rubella Screen Immune Immune 41 [place] [address] [phone] Hemoglobin A1c 5.3 % N 4.0-5.6 42 Hepatitis B Surface Ag Nonreactive Nonreactive 43 Syphillis Igg W/Reflex RPR Nonreactive Nonreactive 44 CBC With No 05/15/2018 [facility] White Blood 10.4 10^3/uL N 3.5-10.8 [place] [address] Count [phone] Red Blood Count 4.74 10^6/uL N 4.00-5.40 Hemoglobin 12.5 g/dL N 12.0-16.0 Hematocrit 38 % N 35-47 Mean Corpuscular Volume 80 fL N 80-97 Mean Corpuscular Hemoglobin 26 pg Low 27-31 Mean Corpuscular HGB Conc 33 g/dL N 31-36 Red Cell Distribution Width 15 % N 10.5-15 Platelet Count 302 10^3/uL N 150-450 Mean Platelet Volume 7.5 fL N 7.4-10.4 Type And Screen 05/15/2018 [facility] Patient [place] [address] [phone] Antibody Screen NEGATIVE HIV 1/2 AB 05/15/2018 [facility] HIV 1 2 Nonreactive Nonreactive 45 [place] [address] Antibody [phone] Lead 05/15/2018 [facility] Lead,Venous, < 1.0 g/dL 0.0-4.9 46 [place] [address] B [phone] Venous/Capillary Venous Submitting Laboratory Phone [phone] Laboratory test 05/15/2018 [facility] Ferritin 15.2 ng/mL N 11 -307 48 [place] [address] [phone] Iron Total 89 g/dL N 50-212 49 Vitamin B12 387 pg/mL N 180-914 50 Vitamin D Total 25(Oh) 22.1 ng/mL N 20-50 51 Folic Acid > 20.00 ng/mL >3.99 52 Calcium 9.5 mg/dL N 8.6-10.3 53 Chromosomes 13, 18, 21 05/15/2018 [facility] Chromosome 13 Negative N 54 + Sex Chromosome Aneuploidy Chromosome 18 Aneuploidy Negative N 55 Chromosome 21 Aneuploidy Negative N 56 Sex Chromosome Analysis Male N 57 PDF Report SEE IMAGE Urine Culture And 05/10/2018 [facility] Urine Culture SEE RESULT [address] [place] [address] BELOW [phone] 1 REFERENCE VALUE Cutoff: 500 2 REFERENCE VALUE Cutoff: 200 3 REFERENCE VALUE Cutoff: 100 4 REFERENCE VALUE Cutoff: 150 5 ADDITIONAL INFORMATION This report is intended for use in clinical monitoring or management of patients. It is not intended for use in employment-related testing. 6 REFERENCE VALUE Cutoff: 200 mg/L 7 Tylenol 3 8 Metabolite of codeine REFERENCE VALUE Cutoff: 100 9 Marissa Zavaleta, MS Contin; Also a minor metabolite (10%) of codeine and can be seen in low concentrations (<2,000 ng/mL) with poppy seed ingestion. 10 Metabolite of morphine REFERENCE VALUE Cutoff: 100 11 Metabolite of heroin 12 Lortab, [place], Vicodin; Also a very minor metabolite of codeine and impurity (<1%) of oxycodone. 13 Metabolite of hydrocodone 14 Metabolite of hydrocodone 15 Dilaudid, Exalgo; Also a metabolite of hydrocodone and a minor (<5%) metabolite of morphine. 16 Metabolite of hydromorphone REFERENCE VALUE Cutoff: 100 17 Endocet, Percocet, Oxycontin 18 Metabolite of oxycodone 19 Numorphan, Opana; Also a metabolite of oxycodone. 20 Metabolite of oxymorphone REFERENCE VALUE Cutoff: 100 21 Metabolite of oxymorphone 22 Actiq, Duragesic, Fentora 23 Metabolite of fentanyl 24 Demerol 25 Metabolite of meperidine 26 Narcan 27 Metabolite of naloxone REFERENCE VALUE Cutoff: 100 28 Dolophine 29 Metabolite of methadone 30 Darvon, Darvocet 31 Metabolite of propoxyphene 32 Tradol, Ultram, Ultracet 33 Metabolite of tramadol 34 Nucynta 35 Metabolite of tapentadol 36 Metabolite of tapentadol REFERENCE VALUE Cutoff: 100 37 Buprenex, Suboxone 38 Metabolite of buprenorphine 39 Metabolite of buprenorphine 40 No opioids were detected. The absence of expected drug(s) and/or drug metabolite(s) may indicate non-compliance, altered pharmacokinetics, inappropriate timing of specimen collection relative to drug administration, diluted/adulterated urine, or limitations of testing. ADDITIONAL INFORMATION This test was developed and its performance characteristics determined by [facility] in a manner consistent with CLIA requirements. This test has not been cleared or approved by the U.S. Food and Drug Administration. Test Performed by: [facility] [employer] - [facility] [address] [place] [address] 41 [id number] 42 Therapeutic target for the treatment of diabetes mellitus patients is <7% HBA1C, and in selective patients <6.0%. Please refer to [place] [employer] diabetic care guidelines for further information. 43 [id number] 44 Warning: A positive result is not useful for establishing a diagnosis of syphilis. In most situations, such a result may reflect a prior treated infection; a negative result can exclude a diagnosis of syphilis except for incubating or early primary disease. 45 It is recognized that currently available assays for the detection of antibodies to HIV-1 and/or HIV-2 may not detect all infected individuals. HIV antibodies may be undetectable in some stages of the infection and in some clinical conditions. The performance of this assay has not been established for populations of infants or children. Assayed by Chemiluminescence Microparticle Immunoassay on the Siemens Advia Centaur CP. Values obtained with different methods or kits cannot be used interchangeably.The diagnostic specificity of the ADVIA Centaur 1/O/2 Enhanced assay in the low risk population was 99.90% (6052/6058) with a 95% confidence interval of 99.78 to 99.96%. 46 ADDITIONAL INFORMATION Testing performed by Inductively Coupled Plasma-Mass Spectrometry (ICP-MS). This test was developed and its performance characteristics determined by [facility] in a manner consistent with CLIA requirements. This test has not been cleared or approved by the U.S. Food and Drug Administration. 47 Test Performed by: [facility] [address] [place] [address] 48 [id number] 49 [id number] 50 Normal Range 180 to 914 Indeterminate Range 145 to 180 Deficient Range <145 51 [id number] 52 [id number] 53 [id number] 54 No aneuploidy detected. 55 No aneuploidy detected. 56 No aneuploidy detected. 57 Male: No aneuploidy detected. 58 SEE RESULT BELOW Name: BRIDGET HYMAN : [address]: Ellen Quintero [facility] Acct: [id number] Unit: [id number] AGE: 28 Location: [facility] Re05/10/18 SEX: F Status: REG REF SPEC: [id number] CARLITOS: 05/10/18-[address]: Ellen GAGE REQ: [id number] RECD: 05/10/18 STATUS: COMP _ SOURCE: URINE SPDESC: ORDERED: Urine Culture COMMENTS: [id number] Urine Source: Random Procedure Result Reported Site Urine Culture Final 05/11/18- 1213 ML No Growth (<1,000 CFU/mL) * ML - Main Lab . END OF REPORT DEPARTMENT OF PATHOLOGY, [address] [place] [address] Johnny Castellon M.D. Director [facility] # [id number] Procedures Date Code Description Status 08/07/2018 43493 Echography Uterus Complete Completed 05/10/2018 59625 OB Ultrasound First Trimester Completed Encounters Type Date Location Provider Dx Diagnosis Office Visit 08/23/2018 [facility] Kaity Campa, R19.7 Diarrhea, unspecified 11:15a Plan of Treatment Future Appointment(s):11/20/2018 9:15 am - Pamela Stover MD at [facility]11/13/2018 1:30 pm - Kaity Campa MD at [facility]11/06/2018 1:00 pm - David Moon M.D. at [facility]10/22/2018 1:00 pm - Blossom Wei MD at [facility]10/08/2018 1:00 pm - David Moon M.D. at [facility] 1:30 pm - Laboratory at [facility]09/17/2018 1:45 pm - Pamela Stover MD at [facility]08/23/2018 - Kaity Campa, MDR19.7 Diarrhea, unspecifiedComments:Recommend she go to [facility] where she can get IVF and be evaluated for anything else concerning. Charge nurse notified and pt agreeable. Can get work note for the weekend. Already had GI referral sent but can't be seen for several weeks. Should continue to drink fluid as tolerated and try small amounts of food.
[2018-09-11 15:16] VITALS: BP 126/71
--- NOTE | 2018-09-11 16:03 | UC ---
Throat Pain/Nasal Kalyan HPI - HPI Summary HPI Summary: Pt presents with c/o sudden onset of ST and body aches that began last night. Pt is 26 weeks . - History of Current Complaint Chief Complaint: UCRespiratory Stated Complaint: SORE THROAT Time Seen by Provider: 09/11/18 15:36 Hx Obtained From: Patient ?: Yes - 26 weeks Onset/Duration: Sudden Onset, Still Present Severity: Mild Pain Intensity: 4 Cough: None Associated Signs & Symptoms: Positive: Dysphagia - Epiglottits Risk Factors Epiglottis Risk Factors: Negative - Allergies/Home Medications Allergies/Adverse Reactions: Allergies Allergy/AdvReac Type Severity Reaction Status Date / Time NSAIDS (Non-Steroidal AdvReac See Comment Verified 09/11/18 15:11 Anti-Inflamma Home Medications: Home Medications Acetaminophen [Tylenol Extra Strength] 1,000 mg PO Q12HR PRN 09/11/18 [History Confirmed 09/11/18] PMH/Surg Hx/FS Hx/Imm Hx Previously Healthy: Yes - Surgical History Surgical History: Yes Surgery Procedure, Year, and Place: Gastric bypass. - Family History Known Family History: Positive: Other - breast CA Negative: Renal Disease - Social History Lives: With Family Alcohol Use: None Substance Use Type: None Smoking Status (MU): Never Smoked Tobacco Have You Smoked in the Last Year: No - Immunization History Vaccination Up to Date: Yes Review of Systems All Other Systems Reviewed And Are Negative: Yes Constitutional: Positive: Chills, Fatigue Skin: Positive: Negative Eyes: Positive: Negative ENT: Positive: Sore Throat Respiratory: Positive: Negative Cardiovascular: Positive: Negative Gastrointestinal: Positive: Negative Genitourinary: Positive: Negative Motor: Positive: Negative Musculoskeletal: Positive: Myalgia Neurological: Positive: Negative Psychological: Positive: Negative Is Patient Immunocompromised?: No Physical Exam Triage Information Reviewed: Yes Appearance: Well-Appearing Vital Signs: Initial Vital Signs Temp 98.7 F 09/11/18 15:13 Pulse 94 09/11/18 15:13 Resp 18 09/11/18 15:13 BP 126/71 09/11/18 15:13 Pulse Ox 97 09/11/18 15:13 Vital Signs Reviewed: Yes Eye Exam: Normal ENT: Positive: Pharyngeal erythema, Tonsillar swelling - tonsil stone left tonsil Dental Exam: Normal Neck exam: Normal Respiratory Exam: Normal Cardiovascular Exam: Normal Musculoskeletal Exam: Normal Neurological Exam: Normal Psychological Exam: Normal Skin Exam: Normal Throat Pain/Nasal Course/Dx - Differential Dx/Diagnosis Differential Diagnosis/HQI/PQRI: Pharyngitis, Tonsillitis Provider Diagnosis: Sore throat (viral) Discharge - Sign-Out/Discharge Documenting (check all that apply): Patient Departure All imaging exams completed and their final reports reviewed: No Studies - Discharge Plan Condition: Stable Disposition: HOME Patient Education Materials: Pharyngitis (ED) Referrals: [facility] [Outside] - If Needed No Primary Care Phys,NOPCP [Primary Care Provider] - - Billing Disposition and Condition Condition: STABLE Disposition: Home
== END 2018-09-11 16:30 | disposition home or self-care (01) ==
LOC: UCEAST 14:47
DX: J02.9 Acute pharyngitis, unspecified (principal); Z98.84 Bariatric surgery status
CPT/HCPCS: 87651; 99211; G0463

== ENCOUNTER 2018-09-23 23:19 | Emergency (ER) | payer SELFPAY ==
--- NOTE | 2018-09-24 00:56 | ED ---
Palpitations / Dysrhythmia - HPI Summary HPI Summary: This patient is a 28 year old F presenting to ED with a chief complaint of CP and palpitations since 2139 last night. The symptoms lasted about an hour. She was sitting on her bed while she experienced the symptoms. She has had palpitations before but not during . Patient is 29 weeks . This is the first . She reports minor lower back and abdominal discomfort. The patient rates the pain 3/10 in severity. Symptoms aggravated by nothing. Symptoms alleviated by nothing. - History of Current Complaint Chief Complaint: EDDysrhythmPalp Time Seen by Provider: 09/24/18 00:46 Hx Obtained From: Patient Onset/Duration: Lasting Hours - 1 hour, Resolved Character: Fast Aggravating: Nothing Alleviating: Nothing Associated Signs & Symptoms: Chest Pain - Allergy/Home Medications Allergies/Adverse Reactions: Allergies Allergy/AdvReac Type Severity Reaction Status Date / Time NSAIDS (Non-Steroidal AdvReac See Comment Verified 09/24/18 01:25 Anti-Inflamma PMH/Surg Hx/FS Hx/Imm Hx Sensory History: Denies: Hx Legally Blind, Hx Deafness Opthamlomology History: Denies: Hx Legally Blind EENT History: Denies: Hx Deafness Neurological History: Reports: Other Neuro Impairments/Disorders - trigeminal neuralgia - Surgical History Surgery Procedure, Year, and Place: Gastric bypass. Infectious Disease History: No Infectious Disease History: Denies: Traveled Outside the [place] in Last 30 Days - Family History Known Family History: Positive: Other - breast CA Negative: Renal Disease - Social History Alcohol Use: None Hx Substance Use: No Substance Use Type: Reports: None Hx Tobacco Use: No Smoking Status (MU): Never Smoked Tobacco Have You Smoked in the Last Year: No Review of Systems Positive: Palpitations, Chest Pain Positive: Abdominal Pain Musculoskeletal: Other - Lw ack pain All Other Systems Reviewed And Are Negative: Yes Physical Exam - Summary Physical Exam Summary: VITAL SIGNS: Reviewed. GENERAL: Patient is a morbidly obese female who is lying comfortable in the stretcher. Patient is not in any acute respiratory distress. HEAD AND FACE: No signs of trauma. No ecchymosis, hematomas or skull depressions. No sinus tenderness. EYES: PERRLA, EOMI x 2, No injected conjunctiva, no nystagmus. EARS: Hearing grossly intact. Ear canals and tympanic membranes are within normal limits. MOUTH: Oropharynx within normal limits. NECK: Supple, trachea is midline, no adenopathy, no JVD, no carotid bruit, no c- spine tenderness, neck with full ROM CHEST: Symmetric, no tenderness at palpation LUNGS: Clear to auscultation bilaterally. No wheezing or crackles. CVS: Regular rate and rhythm, S1 and S2 present, no murmurs or gallops appreciated. ABDOMEN: fundal level is 28 weeks EXTREMITIES: FROM in all major joints, no edema, no cyanosis or clubbing. NEURO: Alert and oriented x 3. No acute neurological deficits. Speech is normal and follows commands. SKIN: Dry and warm Triage Information Reviewed: Yes Vital Signs On Initial Exam: Initial Vitals Temp Pulse Resp BP Pulse Ox 98.4 F 82 16 147/90 100 09/23/18 23:32 09/23/18 23:32 09/23/18 23:32 09/23/18 23:32 09/23/18 23:32 Vital Signs Reviewed: Yes Diagnostics - Vital Signs Vital Signs Temp Pulse Resp BP Pulse Ox 09/23/18 23:32 98.4 F 82 16 147/90 100 - Laboratory Result Diagrams: 09/24/18 01:36 09/24/18 01:36 Lab Statement: Any lab studies that have been ordered have been reviewed, and results considered in the medical decision making process. - EKG 2320 Cardiac Rate: NL - 74 BPM EKG Rhythm: Sinus Rhythm ST Segment: Normal Ectopy: None Summary of EKG Findings: NSR at 74 BPM. Normal axis. Normal interval. No ischemic changes. Course/Dx - Course Course Of Treatment: This patient is a 28 year old F presenting to ED with a chief complaint of CP and palpitations since 2139 last night that lasted about an hour. Blood work obtained. EKG at 2321 revealed NSR at 74 BPM. Normal axis. Normal interval. No ischemic changes. While in the ED, patient has been asymptomatic and because her EKG is normal with sinus rate, patient will be discharged home with dx of palpitations and anxiety. Patient understands and agrees with this plan. - Diagnoses Provider Diagnoses: Palpitations, Anxiety Discharge - Sign-Out/Discharge Documenting (check all that apply): Patient Departure - Discharge Patient Received Moderate/Deep Sedation with Procedure: No - Discharge Plan Condition: Stable Disposition: HOME Patient Education Materials: Heart Palpitations (ED), Anxiety (ED) Referrals: Pamela Stover MD [Primary Care Provider] - 2 Days Additional Instructions: Follow up with your primary care provider in 1-2 days. RETURN TO THE ER FOR WORSENING OR CHANGING SYMPTOMS. - Attestation Statements Document Initiated by Scribe: Yes Documenting Scribe: Collin Sim Provider For Whom Scribe is Documenting (Include Credential): Paige Vieyra MD Scribe Attestation: I, Collin Sim, scribed for Paige Vieyra MD on 09/24/18 at 0221. Status of Scribe Document: Ready
[2018-09-24 01:58] LABS: ABS Eosinophils 0.2 10^3/ul (0-0.6); ABS Lymphocytes 2.2 10^3/ul (1.0-4.8); ABS Monocytes 1.2 10^3/ul (0-0.8); ABS Neutrophils 7.7 10^3/ul (1.5-7.7); Eosinophil % 1.5 %; Hematocrit 31 % (35-47); Hemoglobin 10.1 g/dL (12.0-16.0); Lymphocyte % 19.8 %; Mean Corpuscular HGB Conc 33 g/dL (31-36); Mean Corpuscular Hemoglobin 27 pg (27-31); Mean Corpuscular Volume 80 fL (80-97); Mean Platelet Volume 7.1 fL (7.4-10.4); Nucleated Red Blood Cells % 0.1; Platelet Count 305 10^3/uL (150-450); Red Blood Count 3.82 10^6 /uL (3.70-4.87); Red Cell Distribution Width 14 % (10-15); White Blood Count 11.3 10^3/uL (3.5-10.8)
[2018-09-24 02:11] LABS: BUN/Creatinine Ratio 19.6 (8-20); EGFR African American 173.7 (>60); EGFR Non-African American 143.6 (>60); Globulin 2.9 g/dL (2-4); Magnesium 1.8 mg/dL (1.9-2.7); Potassium 3.6 mmol/L (3.5-5.0); Total Bilirubin 0.3 mg/dL (0.2-1.0); Total Protein 5.9 g/dL (6.4-8.9)
[2018-09-24 02:33] LABS: TSH (Thyroid Stimulating Horm) 1.05 mcIU/mL (0.34-5.60)
[2018-09-24 02:46] VITALS: BP 102/53
== END 2018-09-24 02:45 | disposition home or self-care (01) ==
LOC: ED 23:19
DX: R00.2 Palpitations (principal); F41.9 Anxiety disorder, unspecified; R07.9 Chest pain, unspecified; R10.9 Unspecified abdominal pain
CPT/HCPCS: 36415; 80053; 83735; 84443; 84484; 85025; 93005; 99283

== ENCOUNTER 2018-10-29 17:10 | Emergency (ER) | payer MEDICAID | END 2018-10-29 17:37 | disposition home or self-care (01) | LOC: UCEAST 17:10 | DX: O26.893 Other specified pregnancy related conditions, third trimester (principal); G50.0 Trigeminal neuralgia; Z3A.34 34 weeks gestation of pregnancy | CPT/HCPCS: 99211; G0463 ==

== ENCOUNTER 2018-12-09 11:46 | Inpatient (IN) | payer MEDICAID, OTHER ==
[2018-12-09] MEDS ORDERED: Dinoprostone* 10 MG VAG.SUPP VAGINAL ONE (13:11)
[2018-12-09] MEDS ORDERED: Lactated Ringers 1000 ML Bag* 1,000 ML IV ONE (13:11)
[2018-12-09] MEDS ORDERED: Buffered Lidocaine 1% SYRIN* 1 ML/SYRINGE INTRADERM ONE (13:11)
--- NOTE | 2018-12-09 13:24 | HP ---
General Information - Reason for Visit Elective IOL at term, favorable exam - General Information Maternal Age: 28 Grav: 1 Para: 0 SAB: 0 IEA: 0 Estimated Due Date: 12/08/18 Determined By: LMP Maternal Blood Type and Rh: B Positive - Results this Serology/RPR Result: Non-Reactive Rubella Result: Immune HBsAg Result: Negative HIV Result: Negative GBS Culture Result: Negative Past Medical History Delivery History Comment: Patient is a G1 Pertinent Past Medical History: See Records Past Medical History Comment: Hx of Rishi-en Y 2016 Morbid Obesity Bipolar Disorder Pertinent Past Surgical History: See Records Past Surgical History Comment: Rishi-en Y Pertinent Family History: Non-Contributory - Antepartal Records Antepartal Records: Reviewed, Complicated by: - Morbid Obesity, Hx of Rishi-en Y Review of Systems Constitutional: Comfortable CV Complaint: No Respiratory: Shortness of Breath: No Gastrointestinal: No Nausea/Vomiting, Normal Bowel Movement Genitourinary: No Dysuria, No Bleeding, No Leaking Fluid Musculoskeletal: No Complaint, No Epigastric Pain Neurological: No Headache, No Visual Changes Movement: Normal Exam Allergies/Adverse Reactions: Allergies NSAIDS (Non-Steroidal Anti-Inflamma Adverse Reaction (Verified 09/24/18 01:25) See Comment history of gastric bypass T 98.8 Pulse 92 O2 saturation 100%, RR 118 BP 132/81 - Measurements Height: 5 ft 4 in Weight: 263 lb Weight in lbs: [phone] Body Mass Index (BMI): 45.1 Pre- Weight: 250 lb Weight Gained This : 13 lbs and 0 ozs - Exam Breast: Breast Exam Deferred CVA: No CVA Tenderness Extremities: No Edema Heart: Normal Rhythm/Heart Sounds HEENT: No Significant Findings Lungs: Clear Bilaterally Rectal: Rectal Exam Deferred Reflexes: DTR 2+ Targeted Exam Findings Cervical Exam: 2cm Effacement: 70% Station: -1 Presenting Part: Vertex Membrane Status: Intact EFM Findings - External Monitor Findings Baseline Heart Rate: 150 External Monitor Findings: Accelerations Present, No Pattern of Variable or Late Decelerations, Variability Moderate, Baseline Stable External Monitor Findings Comment: [place] is quiet Contractions: Irregular - FHT reactive and reassuring Assessment/Plan - Assessment 28 y/o G1 at 40w1d here for elective IOL with favorable exam. complicated by Morbid Obesity and Hx of Rishi-en Y surgery. RH + Rubella Immune GBS Negative - Obstetrical Risk Factors Obstetrical Risk Factors: Obesity, Psychiatric Issues - Plan Plan: Induction Plan Comment: Admit to L&D, will start IOL with Cervidil. - Date/Time of Admission Date of Admission: 12/09/18 Time of Admission: 13:00
[2018-12-09] MEDS ORDERED: Lactated Ringers 1000 ML Bag* 1,000 ML IV SCH (14:00)
[2018-12-09 17:13] LABS: Urine Benzodiazepine Screen None Detected (None Detect); Urine Opiates Screen None Detected (None Detect)
--- NOTE | 2018-12-10 00:50 | PN ---
Progress Note - Progress Note Date of Service: 12/10/18 Note: Cervidil removed by Nurse at 1130pm. Pt re-examined by this telegraphic typewriter mechanic at ~1230am, found to be 4-5cm/70%/-2. Pt is uncomfortable with contractions, reinaldo q 1-3 minutes. FH is 135bpm, moderate variability, + accels, no decels with intermittent monitoring, pt difficult to monitor secondary to body habitus. Will expectantly manage at this time, pt appears to be laboring spontaneously s/ p Cervidil. Declines epidural, OK for NO2 when desired. iVmal Cedillo, OBYVONN
--- NOTE | 2018-12-10 07:22 | PN ---
Progress Note - Progress Note Date of Service: 12/10/18 Note: Pt is a G1 at 40w2d here for elective IOL at term. complicated by morbid obesity. Cervix was 2cm/70/-2 at start of IOL. Cervidil placed at 1340 hours on 12/09, pt was reinaldo regularly and on removal of the cervidil at ~ 12am was found to be 4cm. She continued to contract overnight and changed her cervix to 5-6cm/80%/-2. Her contractions have just spaced out over the past 2 hours now. She is currently eating breakfast, will start Pitocin after done eating. Vitals: BP 126/72 P78, RR 18, T 98.6 FHT: Baseline 135bpm, moderate variabilty, + accelerations, no decelerations [place]: irregular contractions G1 at 40w2d here for elective IOL at term, complicated by morbid obesity - AVSS, afebrile, hemodynamically stable - FHT Category I, reactive and reassuring - IOL - cervidil --> will start Pitocin now - GBS negative - RH+/RI Patient signed out to [facility] for the day. Doctor solution specialist also aware of patient. DO LINO Harkins
[2018-12-10] MEDS ORDERED: Oxytocin in LR* 20 UNITS/1,000 ML BAG IVPB SCH (08:00)
[2018-12-10 08:26] LABS: ABS Eosinophils 0.1 10^3/ul (0-0.6); ABS Lymphocytes 1.8 10^3/ul (1.0-4.8); ABS Monocytes 1.2 10^3/ul (0-0.8); Eosinophil % 0.8 %; Hematocrit 30 % (35-47); Hemoglobin 9.8 g/dL (12.0-16.0); Lymphocyte % 15.1 %; Mean Corpuscular HGB Conc 33 g/dL (31-36); Mean Corpuscular Hemoglobin 25 pg (27-31); Mean Corpuscular Volume 76 fL (80-97); Mean Platelet Volume 7.4 fL (7.4-10.4); Platelet Count 336 10^3/uL (150-450); Red Cell Distribution Width 14 % (10-15); White Blood Count 12.2 10^3/uL (3.5-10.8)
--- NOTE | 2018-12-10 08:44 | PN ---
Progress Note - Progress Note Date of Service: 12/10/18 SOAP: Subjective: Pt reports ctx have eased up, still feeling them occasionally, mild. Objective: FHR Category I UCs mild irregular BP 126/72 Assessment: Pt made good progress off cervidil but now labor appears to have stalled. No evidence of acidemia. Plan: []Discussed options including expectant management, AROM and Pitocin augmentation. Recommend Pitocin augmentation. Pt in agreement with plan.
--- NOTE | 2018-12-10 14:57 | PN ---
Progress Note - Progress Note Date of Service: 12/10/18 SOAP: Subjective: Pt increasingly uncomfortable with ctx. Coping well, lots of labor support from friends and family. Objective: Cervix: 5cm/ 80%/ 0 station/ vtx/ bulging bag FHR: 140/ moderate variability/ + accels/ occasional variable decels UCs: 3-4 minutes Pitocin at 16 mu/min Fluid clear following AROM Assessment: Pt coping well, minimal cervical change, but has only recently started feeling more significant ctx. No evidence of acidemia. Plan: AROM performed with pt consent to clear fluid. Continue Pitocin induction.
--- NOTE | 2018-12-10 16:01 | PN ---
Progress Note - Progress Note Date of Service: 12/10/18 Note: Pt significantly more uncomfortable s/p AROM. Tried nitrous oxide without adequate relief. Requests epidural.Dr. Summers notified. R Category I.
[2018-12-10] MEDS ORDERED: OBEPIDURAL* 250 ML EPIDURAL ONE (16:03)
[2018-12-10] MEDS ORDERED: Phenylephrine 40 MCG/ML SYRINGE IV PUSH PRN (16:46)
[2018-12-10] MEDS ORDERED: Lactated Ringers 1000 ML Bag* 1,000 ML IV ONE (16:46)
[2018-12-10] MEDS ORDERED: Sodium Citrate/Citric Acid* 15 ML UDC PO PRN (16:46)
[2018-12-10] MEDS ORDERED: OBEPIDURAL* 250 ML EPIDURAL SCH (17:00)
[2018-12-10] MEDS ORDERED: Lactated Ringers 1000 ML Bag* 1,000 ML IV SCH (17:00)
[2018-12-10] MEDS: Phenylephrine 40 MCG/ML SYRINGE IV PUSH PRN ×2 (17:15→17:39)
--- NOTE | 2018-12-10 22:38 | PN ---
Progress Note - Progress Note Date of Service: 12/10/18 SOAP: Subjective: Pt fairly comfortable with epidural still. Feels some increase in pressure and discomfort, but very tolerable. Objective: Cervix: 5-6 cm/ 90%/ -1/ vtx (essentially unchanged since 1609) FHR: Baseline 125/ moderate variability/ no accels/ no decels (current); at 2105 Pitocin turned off by RN as FHR was experiencing repeated late decels into 90's lasting 1". UCs:approximately every 5 minutes Temp: 99.1, BP 130/66 Assessment: Inadequate cervical change. FHR currently without evidence of acidemia; but when pt was on Pitocin experienced repeated variable and late decelerations. Plan: Consulted with Dr. Scott. Advised him of lack of change in dilation over 4 hours, intolerance of Pitocin. He recommended we leave Pitocin off and see what happens over the next two hours if FHR tracing remains reassuring. Recommendations conveyed to pt.
[2018-12-11] MEDS ORDERED: Morphine PF AMP (0.5MG/ML)* 5 MG/10 ML AMP ONE (01:20)
[2018-12-11] MEDS ORDERED: Midazolam* 1 MG/ML 5 ML VIAL (5 MG) ONE (01:20)
[2018-12-11] MEDS ORDERED: KETAMINE HCL* 50 MG/ML 10 ML VIAL ONE (01:20)
[2018-12-11] MEDS ORDERED: fentaNYL* 50 MCG/ML 2 ML VIAL (100 MCG VIAL) ONE (01:20)
--- NOTE | 2018-12-11 01:20 | PN ---
Progress Note - Progress Note Date of Service: 12/11/18 SOAP: Subjective: [] Objective: [] Assessment: [] Plan: []
[2018-12-11] MEDS ORDERED: Lidocaine 2% w/ EPI 1:200,000* 20 ML SDV VIAL ONE (01:26)
[2018-12-11] MEDS ORDERED: Lidocaine 2% PF* 10 ML AMP ONE (01:26)
[2018-12-11] MEDS ORDERED: diPHENhydraMINE IV* 50 MG/ML 1 ml VIAL (BENADRYL) IV PRN ×3 (01:37→23:55)
[2018-12-11] MEDS ORDERED: DiMENhydriNATE IV* 50 MG/ML VIAL IV PUSH PRN (01:37)
[2018-12-11] MEDS ORDERED: PROCHLORPERAZINE INJ 5 MG/ML 2 ML VIAL IV PRN (01:37)
[2018-12-11] MEDS ORDERED: Nalbuphine* 10 MG/ML 1 ML VIAL IV PRN (01:37)
[2018-12-11] MEDS ORDERED: Naloxone* 0.4 MG/ML 1 ML VIAL IV PRN ×2 (01:37→01:41)
[2018-12-11] MEDS ORDERED: Ondansetron INJ* 2 MG/ML VIAL IV PRN (01:37)
[2018-12-11] MEDS ORDERED: Naloxone* 2 MG in NS 0.9% 250 ML* 250 ML IV PRN (01:37)
[2018-12-11] MEDS ORDERED: ceFOXitin 2 GM IVPREMIX* 2 GM/50 ML BAG ONE (01:45)
[2018-12-11] MEDS ORDERED: ceFOXitin 2 GM IVPREMIX* 2 GM/50 ML BAG IVPB ONE (01:46)
[2018-12-11] MEDS ORDERED: Scopolamine 1.5 mg* PATCH TRANSDERM ONE (02:00)
[2018-12-11] MEDS ORDERED: EPHEDrine (Pressors)* 50 MG/ML VIAL ONE (02:41)
[2018-12-11] MEDS ORDERED: OXYTOCIN* 10 UNITS/ML 1 ML VIAL ONE (02:41)
[2018-12-11] MEDS ORDERED: PROCHLORPERAZINE INJ 5 MG/ML 2 ML VIAL ONE (02:41)
[2018-12-11] MEDS ORDERED: Ondansetron INJ* 2 MG/ML VIAL ONE (02:41)
[2018-12-11] MEDS ORDERED: Phenylephrine 10 MG/ML VIAL* 1 ML VIAL ONE (02:41)
[2018-12-11] MEDS ORDERED: Dexamethasone IV* 4 MG/ML 1 ML (4 MG) ONE (02:41)
[2018-12-11] MEDS ORDERED: Dibucaine 1% 28.35 GM TUBE PR PRN (02:58)
[2018-12-11] MEDS ORDERED: Glycerin ADULT SUPP PR PRN (02:58)
[2018-12-11] MEDS ORDERED: Witch Hazel PAD* JAR TOPICAL PRN (02:58)
[2018-12-11] MEDS ORDERED: Lactated Ringers 1000 ML Bag* 1,000 ML IV SCH (03:00)
[2018-12-11] MEDS: fentaNYL* 50 MCG/ML 2 ML VIAL (100 MCG VIAL) IV PRN ×2 (03:20→03:41)
[2018-12-11] MEDS: oxyCODONE/Acetamin 5/325 MG* TAB PO PRN ×4 (03:50→22:14)
[2018-12-11] MEDS: Ketorolac INJ* 30 MG/ML 1 ML VIAL IV PUSH PRN ×3 (08:54→20:31)
[2018-12-11] MEDS: Simethicone TAB* 80 MG TAB.CHEW PO SCH ×4 (08:55→20:31)
[2018-12-11] MEDS: Docusate CAP* 100 MG PO SCH ×3 (08:55→20:31)
[2018-12-11] MEDS ORDERED: Zolpidem TAB* 5 MG PO PRN (21:00)
[2018-12-12] MEDS ORDERED: diPHENhydraMINE PO* 25 MG PO PRN (01:05)
[2018-12-12] MEDS: oxyCODONE/Acetamin 5/325 MG* TAB PO PRN ×4 (02:57→19:58)
[2018-12-12] MEDS: Ketorolac INJ* 30 MG/ML 1 ML VIAL IM PRN ×3 (05:44→17:59)
[2018-12-12 08:23] LABS: ABS Eosinophils 0.1 10^3/ul (0-0.6); ABS Lymphocytes 2.3 10^3/ul (1.0-4.8); ABS Monocytes 1.2 10^3/ul (0-0.8); ABS Neutrophils 9.5 10^3/ul (1.5-7.7); Eosinophil % 0.7 %; Hematocrit 24 % (35-47); Hemoglobin 7.8 g/dL (12.0-16.0); Lymphocyte % 17.6 %; Mean Corpuscular HGB Conc 32 g/dL (31-36); Mean Corpuscular Hemoglobin 25 pg (27-31); Mean Corpuscular Volume 77 fL (80-97); Mean Platelet Volume 7.2 fL (7.4-10.4); Nucleated Red Blood Cells % 0.1; Platelet Count 243 10^3/uL (150-450); Red Blood Count 3.12 10^6 /uL (3.70-4.87); Red Cell Distribution Width 14 % (10-15); White Blood Count 13.1 10^3/uL (3.5-10.8)
[2018-12-12] MEDS: Docusate CAP* 100 MG PO SCH ×3 (08:39→19:58)
[2018-12-12] MEDS: Simethicone TAB* 80 MG TAB.CHEW PO SCH ×4 (08:39→19:58)
[2018-12-12] MEDS: Ferrous Gluconate TAB* 324 MG TAB PO SCH ×2 (08:46→19:58)
[2018-12-12] MEDS ORDERED: Influenza VAC *QUAD* 2019-20* 0.5 ML SYRINGE IM ONE (09:00)
[2018-12-12] MEDS: diPHENhydraMINE PO* 25 MG PO PRN (21:54)
[2018-12-13] MEDS: Ketorolac INJ* 30 MG/ML 1 ML VIAL IM PRN ×4 (00:22→23:16)
[2018-12-13] MEDS: Acetaminophen TAB* 325 MG PO PRN ×4 (00:22→20:06)
[2018-12-13] MEDS: diPHENhydraMINE PO* 25 MG PO PRN ×3 (05:47→20:07)
[2018-12-13] MEDS: Ferrous Gluconate TAB* 324 MG TAB PO SCH ×2 (09:08→20:06)
[2018-12-13] MEDS: Docusate CAP* 100 MG PO SCH ×3 (09:08→20:07)
[2018-12-13] MEDS: Simethicone TAB* 80 MG TAB.CHEW PO SCH ×4 (09:09→20:07)
--- NOTE | 2018-12-13 09:35 | OP ---
OPERATIVE REPORT: DATE OF OPERATION: 12/11/18 DATE OF : 89 SURGEON: Hosea Scott MD CLINICAL LAB SCIENTIST: Kaity Campa MD ANESTHESIA: Epidural. PRE-OP DIAGNOSES: at 40 weeks with arrest of dilation and labor and non- reassuring monitoring. POST-OP DIAGNOSES: at 40 weeks with arrest of dilation and labor and non- reassuring monitoring. OPERATIVE PROCEDURE: Primary low-transverse section. ESTIMATED BLOOD LOSS: 500 cc. SPECIMENS SENT TO PATHOLOGY: Cord blood. FLUIDS: She received 2 L of IV crystalloid fluid. URINE OUTPUT: Clear. FINDINGS: Delivery of a male weighing 7 pounds 12 ounces with a large caput with Apgars of 8 and 9 with clear fluid. The placenta was grossly intact with a 3- vessel cord noted. The uterus, ad nexa, bowel, and bladder were all within normal limits, and there were no complications. DESCRIPTION OF PROCEDURE: The patient was taken to the operating room where she was identified. She was placed on the operating table where an epidural anesthetic was obtained without difficulty. She was then placed in the supine position with a leftward tilt, prepped and draped in a normal sterile fashion. The Pfannenstiel skin incision was made with a knife and carried through to the underlying layer of fascia. The fascia was then nicked in the midline and extended laterally with curved Hahn s cissors. The fascia was then grasped superiorly and inferiorly with Jorge Luis clamps and dissected out sharply from the rectus muscle. The rectus muscle was in the midline bluntly. The periton eum was identified, grasped with pickups, and entered sharply with Metzenbaum scissors and extended s uperiorly and inferiorly sharply. A blader blade was inserted into the patient's abdomen. A bladder flap was created over which the bladder blade was then reinserted. The low- transverse uterine inci anjum was made with a knife and extended laterally with curved Hahn scissors. The amniotic sac was ru ptured. The 's head was then grasped and delivered atraumatically. The rest of the infant's b ken[place] was then delivered. The cord was clamped and cut and the was handed off to the [facility]. Cord bloods were obtained. The placenta was removed manually. The uterus was then exte riorized, cleared of all clot and debris using moist laparotomy sponges. The uterine incision was th en closed using 0-Polysorb suture in a running locked fashion with a second imbricating layer of 0-Po lysorb suture with good hemostasis noted. At this point, the uterus was returned to the patient's ab domen. The gutters were then cleared of all clots and debris using moist laparotomy sponges. All th e sponges and instruments were removed from the patient's abdomen. The peritoneum was then closed us ing 3-0 Polysorb suture in a running fashion. The fascia was closed using 0-Polysorb suture in a run perlita fashion. The Robbie's fascia was closed with interrupted 3-0 Polysorb sutures and the skin was closed with natalio. The patient tolerated the procedure well. Sponge, lap, and needle counts were c orrect x2. She was then transferred to the recovery room area in stable condition. [id number]/[facility] #: [id number]
[2018-12-14] MEDS ORDERED: Scopolamine PATCH Remove* 1 NOTE MISC PATCH OFF PRN (02:00)
[2018-12-14] MEDS: Acetaminophen TAB* 325 MG PO PRN (02:57)
[2018-12-14] MEDS: diPHENhydraMINE PO* 25 MG PO PRN (03:03)
[2018-12-14] MEDS: Ketorolac INJ* 30 MG/ML 1 ML VIAL IM PRN (06:43)
[2018-12-14] MEDS: Docusate CAP* 100 MG PO SCH (08:15)
[2018-12-14] MEDS: Ferrous Gluconate TAB* 324 MG TAB PO SCH (08:16)
[2018-12-14] MEDS: Simethicone TAB* 80 MG TAB.CHEW PO SCH (08:16)
[2018-12-14] MEDS: oxyCODONE/Acetamin 5/325 MG* TAB PO PRN (08:16)
[2018-12-14 08:42] VITALS: BP 124/69
== END 2018-12-14 11:18 | disposition home or self-care (01) | DRG 540 ==
LOC: MCHOBOUT 11:46 → MCHOB 13:19
PROVIDERS: ADMIT Obstetrics & Gynecology; ATTEND Obstetrics & Gynecology
PROC: 3E033VJ Introduction of Other Hormone into Peripheral Vein, Percutaneous Approach (ICD-10-PCS; 2018-12-11)
PROC: 10907ZC Drainage of Amniotic Fluid, Therapeutic from Products of Conception, Via Natural or Artificial Opening (ICD-10-PCS; 2018-12-11)
PROC: 10D00Z1 Extraction of Products of Conception, Low, Open Approach (ICD-10-PCS; principal; 2018-12-11 01:39)
DX: O99.214 Obesity complicating childbirth (principal); E66.01 Morbid (severe) obesity due to excess calories; O62.0 Primary inadequate contractions; O76 Abnormality in fetal heart rate and rhythm complicating labor and delivery; O99.344 Other mental disorders complicating childbirth; F31.9 Bipolar disorder, unspecified; F41.9 Anxiety disorder, unspecified; O90.81 Anemia of the puerperium; D64.9 Anemia, unspecified; Z3A.40 40 weeks gestation of pregnancy; Z37.0 Single live birth; Z98.84 Bariatric surgery status
CPT/HCPCS: 36415; 59200; 80307; 85025; 86850; 86900; 86901; 90686; A9270-GY; J0694; J0780; J1100; J1200; J1885; J2001; J2250; J2300; J2405; J2590; J3010